=== PATIENT | female | born 1960 | race Caucasian/White ===

== ENCOUNTER 2023-10-19 09:41 | Outpatient (OUT) | payer MEDICARE, OTHER, SELFPAY ==
--- NOTE | 2023-10-19 10:00 | CA_ITS ---
Patient Name: DARIEN NÚÑEZ MR#: [id number] : 1960 Exam Date: 10/19/2023 Ordering Doctor: LEO BAEZA ECHOCARDIOGRAM REPORT PROCEDURE: CARDIO PULMONARY ECHOCARDIO M/2D COMP INDICATIONS: Palpitations COMPARISON: None. DESCRIPTION: COMPLETE ECHOCARDIOGRAM Real-time transthoracic echocardiography with 2D, M-mode, spectral and color flow Doppler performed. QUALITY: Technical quality was good. 69 , 152#, BSA 1.84 m2, BP 132/78 LEFT VENTRICLE: Normal chamber size. Normal left ventricular wall thickness. LV EF: Global left ventricular systolic function is normal; visually estimated ejection fraction is 55%. No obvious wall motion abnormalities. DIASTOLIC: Diastolic function is indeterminant. ATRIAL SEPTUM: Visually appears intact. LEFT ATRIUM: Moderate dilatation. RIGHT ATRIUM: Mild dilatation. RIGHT VENTRICLE: Normal chamber size. Normal right ventricular systolic function. TRICUSPID VALVE: Normal mobility and thickness. Mild to moderate regurgitation. No evidence of pulmonary hypertension. RVSP 26 mmHg MITRAL VALVE: Normal mobility and thickness. No evidence of mitral valve stenosis. There is no mitral annular calcification. Trivial mitral regurgitation. AORTIC VALVE: Normal trileaflet appearance. No visible sclerosis. Normal leaflet mobility. No evidence of aortic valve stenosis. No aortic regurgitation. AORTIC ROOT: Normal diameter and appearance. PULMONIC VALVE: Normal thickness and mobility. No stenosis. No regurgitation. PERICARDIUM: No evidence of pericardial effusion. IVC: Collapses with inspirations. IVC is normal in size. CONCLUSION: 1. Global left ventricular systolic function is normal; visually estimated ejection fraction is 55% 2. Normal right ventricular size and systolic function 3. Biatrial enlargement 4. Diastolic function is indeterminate 5. Mild to moderate tricuspid regurgitation Adult Echocardiography Procedure Report Left Ventricle LVEDD (3.7 - 5.6 cm): 4.96 cm LVESD (2.2 - 4.0 cm): 3.67 cm LVIVS thickness (0.6 - 1.2 cm): 0.70 cm LVPW thickness (0.5 - 1.0 cm): 0.80 cm e': 0.09 m/s E - e': 6.54 LVOT Max Gradient: 4.03 mm[Hg] LVOT Area (cm2): 1.00 m/s Peak Velocity (LVOT): 1.00 m/s Mean Velocity (LVOT): 0.74 m/s LVOT Diameter 2.23 cm Left Atrium LA Volume Index (2D A2C): 43.94 ml/m2 Left Atrium Systolic Dimension: 3.63 cm Mitral Valve MV E to A Ratio: 1 Mitral Valve A-Wave Peak Velocity: 0.59 m/s Mitral Valve E-Wave Peak Velocity: 0.59 m/s Right Ventricle Aorta AO Root Diam: 3.52 cm Ascending Ao Diam: 2.84 cm Aortic Valve AoV Area (Peak [place]): 3.09 cm2, 3.09 cm2 AoV Area (VTI): 3.40 cm2, 3.40 cm2 Peak Velocity(Antegrade Flow): 1.27 m/s Peak Gradient(Antegrade Flow): 6.47 mm[Hg] Mean Velocity(Antegrade Flow): 0.89 m/s Mean Gradient(Antegrade Flow): 3.53 mm[Hg] Velocity Time Integral: 26.95 cm Tricuspid Valve Peak Velocity (Regurgitant Flow): 2.38 m/s Pulmonic Valve Peak Velocity: 0.92 m/s Peak Gradient: 3.48 mm[Hg], 3.25 mm[Hg] Right Atrium Right Atrium Systolic Pressure: 43.24 ml, 43.24 ml Dictated by: Mary Sanchez M.D. on 10/22/2023 at 08:27 Approved by: Mary Sanchez M.D. on 10/22/2023 at 08:33
== END 2023-10-19 09:42 | disposition home or self-care (01) ==
LOC: CARD 09:42
PROVIDERS: PCP Family Medicine
DX: R00.2 Palpitations (principal); I77.810 Thoracic aortic ectasia
CPT/HCPCS: 93306